=== PATIENT | male | born 1935 | race Caucasian/White ===

== ENCOUNTER 2016-10-09 07:25 | Observation (INO) | payer OTHER ==
[2016-10-08 11:49] LABS: BASOPHILS 1.4 %; BASOPHILS ABSOLUTE 0.07 10/3/uL (0.0-0.16); EOSINOPHILS 6.4 %; EOSINOPHILS ABSOLUTE 0.32 10/3/uL (0.0-0.53); HEMATOCRIT 40.7 % (40.0-51.0); HEMOGLOBIN 13.4 g/dL (13.6-17.8); IMMATURE GRANULOCYTES 0.4 %; IMMATURE GRANULOCYTES ABSOLUTE 0.02 10/3/uL (0.0-0.11); LYMPHOCYTES 20.9 %; LYMPHOCYTES ABSOLUTE 1.05 10/3/uL (0.67-4.30); MEAN CORPUS HGB CONC 32.9 g/dL (32.0-36.0); MEAN CORPUSCULAR HEMOGLOB 28.8 pg (26.0-34.0); MEAN CORPUSCULAR VOLUME 87.5 fL (80-100); MEAN PLATELET VOLUME 9.6 fL (9.2-13.0); MONOCYTES 6.2 %; MONOCYTES ABSOLUTE 0.31 10/3/uL (0.21-1.20); NEUTROPHILS 64.7 %; NEUTROPHILS ABSOLUTE 3.26 10/3/uL (2.02-8.40); PLATELET COUNT 106 10/3/uL (150-400); RBC DISTRIBUTION WIDTH 15.6 % (12.0-16.0); RED CELL COUNT 4.65 10/6/uL (4.7-6.1)
[2016-10-08 11:51] LABS: MANUAL DIFF NO %
[2016-10-08 12:04] LABS: A/G RATIO 1.1 (0.7-1.9); ALBUMIN 3.3 G/DL (3.5-5.0); ALKALINE PHOSPHATASE 75 U/L (45-117); BUN (BLOOD UREA NITROGEN) 16 MG/DL (6-23); CALCIUM, SERUM 8.6 MG/DL (8.5-10.4); CHLORIDE, SERUM 111 MMOL/L (96-112); CO2 (CARBON DIOXIDE) 25 MMOL/L (24-34); CREATININE 1.88 MG/DL (0.70-1.30); GFR AFRICAN AMERICAN 38 ML/MIN (>=60); GFR NON AFRICAN AMERICAN 33 ML/MIN (>=60); GLOBULIN 3.1 G/DL (2.5-4.1); SGOT(AST) 14 U/L (5-40); SGPT(ALT) 10 U/L (5-65); SODIUM, SERUM 142 MMOL/L (135-148); TOTAL BILIRUBIN 0.3 MG/DL (0-1.2); TOTAL PROTEIN 6.4 G/DL (6.0-8.5)
[2016-10-08 12:05] LABS: GLUCOSE, SERUM 228 MG/DL (60-99)
--- NOTE | ~2016-10-09 | PUL ---
[facility] [address] [place]. [address] NAME: TOMAS BARNETT : 33 STATUS : ADM Alondra PAT#: [id number] AGE: 80 ADM/REG DATE : 10/09/16 MR#: [id number] REPORT SERV DATE: 10/10/16 DICTATED BY: ANA MARIA CHERRY DATE: 10/10/16 REPORT STATUS : Draft TRANSCRIBED BY: MODL DATE: 10/10/16 PULMONARY FUNCTION TEST OVERNIGHT OXIMETRY. START DATE OF TESTIN10/09/2016. END DATE OF TESTIN10/10/2016. COMMENTS: Testing conducted while the patient was breathing room air. RESULTS: Total valid sampling time 6 hours and 30 seconds. Total time with an oxygen saturation less than 88%, 0. No time was spent with an oxygen saturation less than 90%. IMPRESSION: Normal overnight oximetry. PS/MODL Ana Maria Cherry M.D. / [id number] CC: Jorge Ha M.D.
--- NOTE | ~2016-10-09 | OP ---
Record Of Operation [facility] [address] [place]. [address] NAME: TOMAS BARNETT : 33 STATUS : ADM Alondra PAT#: [id number] AGE: 80 ADM/REG DATE : 10/09/16 MR#: [id number] REPORT SERV DATE: 10/09/16 DICTATED BY: JORGE SANTIAGO DATE: 10/09/16 REPORT STATUS : Draft TRANSCRIBED BY: MODL DATE: 10/09/16 DATE OF PROCEDURE: 10/09/2016 PREOPERATIVE DIAGNOSIS: Benign prostatic hyperplasia, bladder outlet obstruction. POSTOPERATIVE DIAGNOSIS: Benign prostatic hyperplasia, bladder outlet obstruction. OPERATIVE PROCEDURE: Cystoscopy and transurethral resection of prostate. ANESTHESIA: General endotracheal. SURGEON: Jorge Santiago M.D. SPECIMENS: Prostate chips. ESTIMATED BLOOD LOSS: 25-50 mL. COMPLICATIONS: None. DRAINS: One #24, 30 mL three-way Ledesma catheter. IMMEDIATE POSTOP: Satisfactory. DESCRIPTION OF PROCEDURE: The patient was brought into the cysto suite, given inhalational anesthetic, placed in lithotomy position. Perineum and genitalia were prepped and draped in sterile fashion. There was concern about possible phimosis requiring a dorsal slit; however, the foreskin appeared adequate, and I did not think that any procedure on the foreskin was indicated. Video cystourethroscopy was then performed using a #22 cystoscope Foroblique lens. Distal urethra was normal. Prostate showed visual occlusion of bladder outlet. There was hypertrophy of the bladder neck without a true median lobe, bilateral and lateral lobe visual occlusion. 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 Bladder was inspected. Ureteral orifices were identified and observed throughout the case periodically and at the close of procedure were found to be undisturbed, likewise for the external urethral sphincter. After careful cystoscopic exam, the cystoscope was removed. The urethra was dilated Len sounds to a 30 followed by insertion of a 28 continuous flow resectoscope sheath and obturator. Obturator removed and placed with the working element Foroblique lens. The obstructing tissue was then resected with the continuous flow resectoscope in the following manner: Initial area to be resected was hypertrophied bladder neck down to circular muscle fibers of the bladder wall. This was followed by resection of the anterior lobe, left lateral lobe, right lateral lobe, floor, and apex, in that order. Hemostasis was obtained. Electrocautery was satisfactory at the close of the procedure. Prostate chips were evacuated using the ebridge evacuator. Bladder was checked for residual chips, none were noted. Integrity of the bladder wall appeared to be intact. At this point, a #24, 30 mL three-way Ledesma catheter was placed in the bladder. Record Of Operation [address] [place]. [address] NAME: TOMAS BARNETT : 33 STATUS : ADM Alondra PAT#: [id number] AGE: 80 ADM/REG DATE : 10/09/16 MR#: [id number] REPORT SERV DATE: 10/09/16 DICTATED BY: JORGE SANTIAGO DATE: 10/09/16 REPORT STATUS : Draft TRANSCRIBED BY: RUDDY DATE: 10/09/16 Balloon inflated, hooked to drainage, continuous irrigation and taped on gentle traction on the patient's thigh. The patient was then awakened and sent to recovery in satisfactory condition. /RUDDY Jorge Santiago M.D. / [id number] CC: Jorge Santiago M.D.
--- NOTE | ~2016-10-09 | CN ---
Consultation Report [facility] [address] [place]. [address] NAME: TOMAS BARNETT : 33 STATUS : ADM Alondra PAT#: [id number] AGE: 80 ADM/REG DATE : 10/09/16 MR#: [id number] REPORT SERV DATE: 10/09/16 DICTATED BY: DATE: REPORT STATUS : Draft TRANSCRIBED BY: MODL DATE: 10/09/16 INTERNAL MEDICINE CONSULT DATE OF CONSULTATION: 10/09/2016 REASON FOR CONSULT: Elevated blood pressure. HISTORY OF PRESENT ILLNESS: Mr. Barnett is an 80-year-old white male who presented to the hospital today for a cystoscopy with TURP due to benign prostatic hypertrophy with bladder outlet obstruction. Preoperatively, blood pressure was noted to be elevated at 213/94. He was given an unknown blood pressure medication and operated upon. Postoperatively, when he came to [address] [place] [address], blood pressure was found to be again elevated at 194/90. The patient is asymptomatic from this and denies any headache, vision changes, confusion, chest pain, or shortness of breath. The patient does have a longstanding history of hypertension and has been managed with various medications over the years. His current outpatient regimen includes carvedilol, losartan, Imdur, and Hytrin. He reports that Hytrin may have been added a few weeks ago when he was hospitalized at [facility] for urinary tract infection and his blood pressure was noted to be "slightly high" there as well. He is unable to site specific numbers and has not been checking his blood pressure at home. Family reports that "blood pressure readings were not as high as currently." The patient is not adherent to a cardiac or a diabetic diet at home. He also recently was told that he has some kidney dysfunction but has not yet seen a telemarketer supervisor for this. Creatinine here is noted to be 1.88, on prior value of 1.4 to 1 year ago. The patient's noted that he has been sleeping poorly recently and has increased daytime somnolence. REVIEW OF SYSTEMS: Full 14-point review of systems is negative except as dictated in the history of present illness. PAST MEDICAL HISTORY: Includes: 1. Coronary artery disease, status post 3-vessel CABG in 2016. 2. Carotid artery stenosis - bilateral grade 2 by arteriogram, with no prior intervention performed. 3. Benign prostatic hypertrophy and bladder outlet obstruction. 4. Hypertension. 5. Parkinson disease with no evidence of dementia. 6. Depression. 7. 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 Consultation Report [address] [place]. [address] NAME: TOMAS BARENTT : 33 STATUS : ADM Alondra PAT#: [id number] AGE: 80 ADM/REG DATE : 10/09/16 MR#: [id number] REPORT SERV DATE: 10/09/16 DICTATED BY: DATE: REPORT STATUS : Draft TRANSCRIBED BY: MODL DATE: 10/09/16 PAST SURGICAL HISTORY: Includes cholecystectomy, remote back surgery, hand surgery, three- vessel CABG, and TURP performed today. ALLERGIES: ATIVAN CAUSES PARADOXIC AGITATION. HOME MEDICATIONS: Include: 1. Aspirin 81 mg p.o. q.a.m. 2. Sinemet 25/100, one tablet p.o. three times a day. 3. Carvedilol 12.5 mg p.o. twice a day. 4. Cranberry tablets 500 mg p.o. q.a.m. 5. Colace 100 mg p.o. q.a.m. 6. Lexapro 10 mg p.o. daily. 7. Folic acid 1 mg p.o. daily. 8. Neurontin 300 mg p.o. at bedtime. 9. Lantus 31 units subcu at bedtime. 10.Humalog sliding scale. 11.Imdur 30 mg p.o. daily. 12.Melatonin 1 mg p.o. at bedtime. 13.Protonix 40 mg p.o. q.a.m. 14.Simvastatin 40 mg p.o. at bedtime. 15.Flomax 0.4 mg p.o. at bedtime. 16.Hytrin 1 mg p.o. at bedtime. 17.Valsartan 160 mg p.o. daily. 18.Vitamin B one tablet p.o. daily. SOCIAL HISTORY: The patient is and his supportive is here at the bedside, as is one of his daughters and one of his granddaughters. He has a remote history of tobacco, but quit over 30 years ago. He has no history of alcohol or illicit substance use. FAMILY HISTORY: Pertinent for CVA, coronary artery disease, diabetes, and one brother is on hemodialysis because of kidney complications related to diabetes. PHYSICAL EXAMINATION: VITAL SIGNS: Blood pressure 194/90, pulse 50, respiration rate 16, oxygen saturations 98% on 2 L nasal cannula, and temperature is 96.4. GENERAL: This is a well-developed, well-nourished white male, in no acute distress. Alert and oriented in three dimensions. Pleasant sense of humor. HEENT: Normocephalic, atraumatic. Pupils are equally round and reactive to light. Small subconjunctival hemorrhage in the right eye noted with intact visual acuity. No sinus tenderness to palpation. No nasal drainage. Oropharynx moist and pink with no posterior pharyngeal erythema nor exudate. NECK: Supple. No jugular venous distention. No lymphadenopathy. No bruits. CARDIOVASCULAR: Regular rate and rhythm. No murmurs, rubs or gallops. LUNGS: Clear to auscultation bilaterally. No wheezes, crackles, nor rhonchi. ABDOMEN: Soft, nontender, and nondistended with normoactive bowel sounds in four quadrants. Consultation Report [place] [id number] [facility] [place]. [address] NAME: TOMAS BARNETT : 33 STATUS : ADM Alondra PAT#: [id number] AGE: 80 ADM/REG DATE : 10/09/16 MR#: [id number] REPORT SERV DATE: 10/09/16 DICTATED BY: DATE: REPORT STATUS : Draft TRANSCRIBED BY: MODLupis DATE: 10/09/16 No renal artery bruits. EXTREMITIES: No cyanosis, clubbing, or edema. SKIN: Normal skin turgor with no rash or skin breakdown. NEUROLOGIC: Cranial nerves 2 through 12 were tested and are intact. Deep tendon reflexes 2+ bilateral brachioradialis and patellar tendons. Strength 5/5 bilateral upper and lower extremities. LABORATORY DATA: White blood cell count 5, hemoglobin 13.4, hematocrit 40.7, and platelets 106. Sodium 142, potassium 5.0, chloride 111, bicarb 25, BUN 16, creatinine 1.88, glucose 228, calcium 8.6, total protein 6.4, and albumin 3.3. Liver enzymes are normal. IMAGING: PA and lateral chest x-ray shows no acute process, and EKG is pending. IMPRESSION: 1. Accelerated hypertension - history of long-standing hypertension with recently poor control, at least three to four weeks. 2. Acute kidney injury versus progressive chronic kidney disease. 3. Known vasculopathy. 4. History of coronary artery disease, status post CABG. 5. History of carotid artery stenosis - bilateral grade 2. 6. Parkinson disease. 7. Depression. 8. Insulin-dependent diabetes mellitus type 2. 9. Thrombocytopenia. 10.Daytime somnolence. PLAN: 1. Treat blood pressure with combination of nitroglycerin paste, labetalol instead of carvedilol - watching heart rate, terazosin, Norvasc, and p.r.n. hydralazine. 2. Obtain renal artery Doppler ultrasound to evaluate for renal artery stenosis. 3. Check hemoglobin A1c, urinalysis, urine protein to creatinine ratio, TSH. 4. Check overnight screening pulse oximetry to rule out untreated sleep apnea as a cause of labile hypertension and daytime somnolence. Additional recommendations pending results of above. We will follow along with you. ARTURO/RUDDY Adal Garcia M.D. / [id number] Consultation Report [address] [address] NAME: TOMAS BARNETT : 33 STATUS : ADM Alondra PAT#: [id number] AGE: 80 ADM/REG DATE : 10/09/16 MR#: [id number] REPORT SERV DATE: 10/09/16 DICTATED BY: DATE: REPORT STATUS : Draft TRANSCRIBED BY: RUDDY DATE: 10/09/16 CC: Namrata Devine II, M.D.
--- NOTE | ~2016-10-09 | CN ---
Consultation Report [facility] [address] [place]. [address] NAME: TOMAS BARNETT : 33 STATUS : ADM Alondra PAT#: [id number] AGE: 80 ADM/REG DATE : 10/09/16 MR#: [id number] REPORT SERV DATE: 10/10/16 DICTATED BY: DATE: REPORT STATUS : Draft TRANSCRIBED BY: MODL DATE: 10/10/16 DATE OF CONSULTATION: REASON FOR CONSULTATION: CKD, accelerated hypertension. HISTORY OF PRESENT ILLNESS: Mr. Barnett is an 80-year-old white male, who denies a history of kidney disease, but he is known to have a history of longstanding hypertension; diabetes for two to three years; coronary artery disease, status post bypass; now BPH, status post TURP, postop day two. Preoperatively, his creatinine was 1.88, today is 1.75, the last creatinine in the computer was from 10/2015 and was 1.42. He denies any problems with edema. He has had decreased p.o. intake since being here as he does not like the food. He has had a renal Doppler that is negative. His urine dipstick on arrival had 100 mg/dL of protein and some blood, but as above, he has had the TURP. He does have Parkinson disease. The states his blood pressure has not been difficult to control in the past. PAST MEDICAL HISTORY: Hypertension, BPH, coronary artery disease, bypass, carotid stenosis grade 2, depression, EF 60%, reflux, diabetes, cholecystectomy, back surgery, TURP. SOCIAL HISTORY: He is . Distant history of tobacco use. No alcohol or illicit drug use. FAMILY MEDICAL HISTORY: Positive for brother with end-stage renal disease, currently still on dialysis, CVA and coronary artery disease. ALLERGIES: ATIVAN. MEDICATIONS: At the time of consultation, he just received a dose of Norvasc, Sinemet, Colace, Lexapro, folic acid, NovoLog, Trandate, nitroglycerin, Protonix, Zocor, Flomax, and Hytrin. REVIEW OF SYSTEMS: 12-point review of systems obtained and negative with the exception of that in the HPI. PHYSICAL EXAMINATION: VITAL SIGNS: Temp 97.8, blood pressure 163/72, pulse 53, respiratory rate 20, O2 sat is 95%. GENERAL: This is a pleasant, cooperative white male. Awake, alert and oriented x3, no acute distress. Answers questions appropriately. HEENT: Normocephalic and atraumatic. Conjunctivae clear. Sclerae anicteric. Pupils are equal and round. Oral mucosa is moist. NECK: Supple. Carotids are brisk. Neck veins flat. No lymphadenopathy. RESPIRATIONS: Even and unlabored. Breath sounds clear to auscultation. HEART: Rate is regular. No murmur, rub, or gallop. ABDOMEN: Soft and nontender. Bowel sounds active. No masses. No hepatosplenomegaly. No bruits. No CVA tenderness. Consultation Report [address] [place]. [address] NAME: TOMAS BARNETT : 33 STATUS : ADM Alondra PAT#: [id number] AGE: 80 ADM/REG DATE : 10/09/16 MR#: [id number] REPORT SERV DATE: 10/10/16 DICTATED BY: DATE: REPORT STATUS : Draft TRANSCRIBED BY: MODL DATE: 10/10/16 BACK: Within normal limits. EXTREMITIES: No edema, cyanosis, or clubbing. SKIN: Warm, dry, and intact. No unusual rash or skin lesions. NEURO: He has bilateral tremors. Mood and affect pleasant and appropriate. PERTINENT LABS AND X-RAYS: Renal Doppler negative. Hemoglobin A1c of 9.2. WBC 7.4, H and H of 14 and 42, platelets 91,000. Sodium 140, potassium 4.6, chloride 109, CO2 of 25, BUN of 14, creatinine of 1.75, glucose 91, calcium 8.6, magnesium 1.8. TSH of 6.2. Urinalysis, this was done preoperatively, mg/dL of protein, large amount of blood, trace leukocyte esterase positivity by microscopic exam, has greater than 182 red blood cells per high-power field, 25 white blood cells, yeast budding moderate, bacteria rare. IMPRESSION: 1. Chronic kidney disease, probably stage 3, baseline 1.4 to 1.7. 2. Status post TURP for benign prostatic hypertrophy. 3. Hypertension. 4. Diabetes. 5. Coronary artery disease, status post bypass. 6. Carotid disease. PLAN: CKD, this is probably at baseline , we will follow. Multiple blood pressure medicine changes have been made recently. We will follow blood pressures. We will not add anything. Would hold the HCTZ. If creatinine stable or better tomorrow, we will go ahead and restart his ARB for blood pressure control. We will follow along with you, thank you for the consultation, and we will be glad to see him in [facility]. JACKLYN/MODL TIMOTHY Page / [phone] CC: Namrata Devine II, M.D.
[~2016-10-09 07:25] MED LIST: ASAB PO; COREG12 PO; COZ50 PO; CRANBERRY500 MG PO; DIOV160 PO; DSS PO; FLOMAX4 PO; FOLIC PO; HUMALOG SC; HYT1 PO; IMDUR30 PO; LANTUS SC; LEXAPRO10 PO; LIPOTRIAD1 CAP PO; MELATONIN1 M1 PO; NEUR300 PO; NXL9 PO; PLAVIX PO; PROTONIX PO; SIN25 PO; SYN.025B PO; ZOCOR40 PO
[2016-10-09 22:13] LABS: CREATININE, URINE 78.5 MG/DL
[2016-10-09 22:20] LABS: ASCORBIC ACID (UR NOT ORDER) NEG (NEG); BILIRUBIN, URINE NEGATIVE (NEG); KETONE, URINE NEGATIVE (NEG); LEUKOCYTE ESTERASE(NOT OR TRACE (NEG); WBC (NOT ORDERED) (RFLEX) 25 (0-5)
[2016-10-10 07:05] LABS: BASOPHILS 0.5 %; BASOPHILS ABSOLUTE 0.04 10/3/uL (0.0-0.16); EOSINOPHILS 4.4 %; EOSINOPHILS ABSOLUTE 0.33 10/3/uL (0.0-0.53); HEMATOCRIT 42.9 % (40.0-51.0); HEMOGLOBIN 14.1 g/dL (13.6-17.8); IMMATURE GRANULOCYTES 0.3 %; IMMATURE GRANULOCYTES ABSOLUTE 0.02 10/3/uL (0.0-0.11); LYMPHOCYTES 15.9 %; LYMPHOCYTES ABSOLUTE 1.18 10/3/uL (0.67-4.30); MEAN CORPUS HGB CONC 32.9 g/dL (32.0-36.0); MEAN CORPUSCULAR HEMOGLOB 28.8 pg (26.0-34.0); MEAN CORPUSCULAR VOLUME 87.6 fL (80-100); MEAN PLATELET VOLUME 9.7 fL (9.2-13.0); MONOCYTES 6.9 %; MONOCYTES ABSOLUTE 0.51 10/3/uL (0.21-1.20); NEUTROPHILS ABSOLUTE 5.36 10/3/uL (2.02-8.40); PLATELET COUNT 91 10/3/uL (150-400)
[2016-10-10 07:07] LABS: MANUAL DIFF NO %; WHITE BLOOD CELLS 7.4 10/3/uL (4.5-10.5)
[2016-10-10 07:23] LABS: BUN (BLOOD UREA NITROGEN) 14 MG/DL (6-23); CALCIUM, SERUM 8.6 MG/DL (8.5-10.4); CHLORIDE, SERUM 109 MMOL/L (96-112); CO2 (CARBON DIOXIDE) 25 MMOL/L (24-34); CREATININE 1.75 MG/DL (0.70-1.30); FREE T4 1.07 NG/DL (0.76-1.46); GFR AFRICAN AMERICAN 41 ML/MIN (>=60); GFR NON AFRICAN AMERICAN 35 ML/MIN (>=60); GLUCOSE, SERUM 91 MG/DL (60-99); POTASSIUM, SERUM 4.6 MMOL/L (3.5-5.3); SODIUM, SERUM 140 MMOL/L (135-148)
[2016-10-11 06:11] LABS: HEMATOCRIT 40.4 % (40.0-51.0); HEMOGLOBIN 13.5 g/dL (13.6-17.8); MEAN CORPUS HGB CONC 33.4 g/dL (32.0-36.0); MEAN CORPUSCULAR HEMOGLOB 29.3 pg (26.0-34.0); MEAN CORPUSCULAR VOLUME 87.6 fL (80-100); MEAN PLATELET VOLUME 10.2 fL (9.2-13.0); PLATELET COUNT 93 10/3/uL (150-400); RBC DISTRIBUTION WIDTH 15.9 % (12.0-16.0); RED CELL COUNT 4.61 10/6/uL (4.7-6.1); WHITE BLOOD CELLS 4.7 10/3/uL (4.5-10.5)
[2016-10-11 06:13] LABS: MANUAL DIFF YES %
[2016-10-11 06:23] LABS: ALBUMIN 2.9 G/DL (3.5-5.0); BUN (BLOOD UREA NITROGEN) 13 MG/DL (6-23); CALCIUM, SERUM 8.4 MG/DL (8.5-10.4); CHLORIDE, SERUM 110 MMOL/L (96-112); CO2 (CARBON DIOXIDE) 23 MMOL/L (24-34); CREATININE 1.63 MG/DL (0.70-1.30); GFR AFRICAN AMERICAN 45 ML/MIN (>=60); GFR NON AFRICAN AMERICAN 39 ML/MIN (>=60); PHOSPHORUS, SERUM 2.3 MG/DL (2.5-4.5); SODIUM, SERUM 140 MMOL/L (135-148)
[2016-10-11 06:28] LABS: GLUCOSE, SERUM 125 MG/DL (60-99)
[2016-10-11 06:33] LABS: BAND NEUTROPHILS 5 %; EOSINOPHILS 4 %; EOSINOPHILS ABSOLUTE (CALC) 0.19 10/3/uL (0.0-0.53); LYMPHOCYTES 16 %; LYMPHOCYTES ABSOLUTE (CALC) 0.75 10/3/uL (0.67-4.30); MONOCYTES 5 %; MONOCYTES ABSOLUTE (CALC) 0.24 10/3/uL (0.21-1.20); NEUTROPHILS ABSOLUTE (CALC) 3.53 10/3/uL (2.02-8.40); PLATELET ESTIMATE DEC (ADEQUATE); SEGMENTED NEUTROPHIL (0) 70 %; TOTAL NUCLEATED CELLS 100
[2016-10-11 06:34] LABS: RBC MORPHOLOGY NORM (NORMAL)
[2016-10-11] MEDS ORDERED: NORV5 PO (14:14)
== END 2016-10-11 15:52 | disposition home or self-care (01) ==
LOC: SDC 07:25 → SDC/OF 11:42 → 4SO 12:39
PROVIDERS: Hospitalist; Urology
PROC: 0VT08ZZ Resection of Prostate, Via Natural or Artificial Opening Endoscopic (ICD-10-PCS; principal; 2016-10-09 08:45)
DX: N40.1 Benign prostatic hyperplasia with lower urinary tract symptoms (principal); N13.8 Other obstructive and reflux uropathy; G20 Parkinson's disease; E11.22 Type 2 diabetes mellitus with diabetic chronic kidney disease; I25.10 Atherosclerotic heart disease of native coronary artery without angina pectoris; K21.9 Gastro-esophageal reflux disease without esophagitis; I12.9 Hypertensive chronic kidney disease with stage 1 through stage 4 chronic kidney disease, or unspecified chronic kidney disease; N18.9 Chronic kidney disease, unspecified; I65.23 Occlusion and stenosis of bilateral carotid arteries; D69.6 Thrombocytopenia, unspecified; Z95.1 Presence of aortocoronary bypass graft; Z87.891 Personal history of nicotine dependence; Z98.890 Other specified postprocedural states; Z90.49 Acquired absence of other specified parts of digestive tract; Z82.49 Family history of ischemic heart disease and other diseases of the circulatory system; Z82.3 Family history of stroke; Z88.8 Allergy status to other drugs, medicaments and biological substances; Z79.899 Other long term (current) drug therapy; Z79.82 Long term (current) use of aspirin
CPT/HCPCS: 71020; 80048; 80053; 80069; 81001; 82570; 82962; 83036; 83735; 84156; 84439; 84443; 85025; 87086; 88305; 93005; 93975; 94762; 96374; A9270-GY; G0378; J0360; J1750; J2405; J2710; J3010

== ENCOUNTER 2016-10-12 05:36 | Emergency (ER) | payer OTHER ==
[2016-10-12 04:47] LABS: BASOPHILS 0.2 %; BASOPHILS ABSOLUTE 0.01 10/3/uL (0.0-0.16); EOSINOPHILS 4.2 %; EOSINOPHILS ABSOLUTE 0.22 10/3/uL (0.0-0.53); ER CBC TAT 0 Hrs 05 Mins; HEMATOCRIT 44.6 % (40.0-51.0); IMMATURE GRANULOCYTES 0.4 %; IMMATURE GRANULOCYTES ABSOLUTE 0.02 10/3/uL (0.0-0.11); LYMPHOCYTES 11.1 %; LYMPHOCYTES ABSOLUTE 0.58 10/3/uL (0.67-4.30); MEAN CORPUS HGB CONC 33.6 g/dL (32.0-36.0); MEAN CORPUSCULAR HEMOGLOB 29.2 pg (26.0-34.0); MEAN CORPUSCULAR VOLUME 86.9 fL (80-100); MEAN PLATELET VOLUME 9.7 fL (9.2-13.0); MONOCYTES 6.3 %; MONOCYTES ABSOLUTE 0.33 10/3/uL (0.21-1.20); NEUTROPHILS 77.8 %; NEUTROPHILS ABSOLUTE 4.07 10/3/uL (2.02-8.40); PLATELET COUNT 69 10/3/uL (150-400); RBC DISTRIBUTION WIDTH 15.6 % (12.0-16.0); RED CELL COUNT 5.13 10/6/uL (4.7-6.1); WHITE BLOOD CELLS 5.2 10/3/uL (4.5-10.5)
[2016-10-12 04:49] LABS: MANUAL DIFF NO %
[2016-10-12 05:04] LABS: A/G RATIO 0.9 (0.7-1.9); ALBUMIN 3.2 G/DL (3.5-5.0); ALKALINE PHOSPHATASE 74 U/L (45-117); CALCIUM, SERUM 8.5 MG/DL (8.5-10.4); CHLORIDE, SERUM 109 MMOL/L (96-112); CO2 (CARBON DIOXIDE) 23 MMOL/L (24-34); GFR AFRICAN AMERICAN 43 ML/MIN (>=60); GFR NON AFRICAN AMERICAN 37 ML/MIN (>=60); GLOBULIN 3.4 G/DL (2.5-4.1); GLUCOSE, SERUM 117 MG/DL (60-99); SGOT(AST) 19 U/L (5-40); SGPT(ALT) 8 U/L (5-65); SODIUM, SERUM 138 MMOL/L (135-148); TOTAL BILIRUBIN 0.5 MG/DL (0-1.2); TOTAL PROTEIN 6.6 G/DL (6.0-8.5)
[2016-10-12 05:05] LABS: BUN (BLOOD UREA NITROGEN) 22 MG/DL (6-23); POTASSIUM, SERUM 3.7 MMOL/L (3.5-5.3)
[2016-10-12 05:09] LABS: PLATELET ESTIMATE DEC (ADEQUATE); RBC MORPHOLOGY NORM (NORMAL)
[~2016-10-12 05:36] MED LIST changes: +NORV5 PO
== END 2016-10-12 07:02 | disposition home or self-care (01) ==
LOC: ER 05:36
PROVIDERS: Specialist
DX: E11.65 Type 2 diabetes mellitus with hyperglycemia (principal); I12.9 Hypertensive chronic kidney disease with stage 1 through stage 4 chronic kidney disease, or unspecified chronic kidney disease; N18.9 Chronic kidney disease, unspecified; R00.1 Bradycardia, unspecified; Z88.8 Allergy status to other drugs, medicaments and biological substances; Z79.82 Long term (current) use of aspirin; Z79.4 Long term (current) use of insulin; Z79.899 Other long term (current) drug therapy
CPT/HCPCS: 80053; 82962; 85025; 93005; 99285